=== PATIENT | female | born 1935 | race Caucasian/White ===

== ENCOUNTER 2016-07-15 21:32 | Emergency (ER) | payer MEDICARE ==
[~2016-07-15] VITALS: Ht 157.4 cm; Wt 45.8 kg
[~2016-07-15 21:32] MED LIST: ALENDRONATE SOD35 M1 PO; ASPIRIN81 M1 PO; B12100 MC1 PO; CALCIUM 600600 M2 PO; CARBIDOPA PO; CILOXAN 5 ML5 M1 OT; ESTRAC1 T; LEVOD PO; LIPITOR10 MG PO; MIRALAX17 GM PO; SEROQUEL25 MG PO; STOOL SOFTENER100 MG PO; VITAMIN D32000 UNI1 PO; ZESTRIL10 MG PO
[2016-07-15] MEDS ORDERED: CELECOXIB200 M1 PO (21:44)
[2016-07-15] MEDS ORDERED: FAMOTIDINE20 M1 PO (21:46)
[2016-07-15] MEDS ORDERED: FLORASTOR250 MG PO (21:46)
[2016-07-15] MEDS ORDERED: INVANZ1 GM/50 ML IV (21:47)
[2016-07-15 21:57] LABS: BASO # 0.1 10*3/uL (0.0-0.1); BASO % 0.7 % (0.0-1.0); EOS # 0.5 10*3/uL (0.0-0.4); EOS % 4.5 % (1.0-4.0); HEMATOCRIT 38.9 % (37.0-47.0); HEMOGLOBIN 12.4 g/dl (12.0-16.0); IG # 0.1 10*3/uL (0.0-0.1); LYMPH # 1.6 10*3/uL (1.3-4.4); LYMPH % 14.9 % (27.0-41.0); MEAN CELL VOLUME 95.1 fl (81.0-99.0); MEAN CORPUSCULAR HGB 30.3 pg (27.0-31.0); MEAN CORPUSCULAR HGB CONC 31.9 g/dl (33.0-37.0); MEAN PLATELET VOLUME 10.3 fl (9.6-12.3); MONO % 9.7 % (3.0-9.0); NEUT # 7.4 10*3/uL (2.3-7.9); NEUT % 69.2 % (47.0-73.0); PLATELET COUNT AUTOMATED 279 10*3/uL (130-400); RED BLOOD COUNT 4.09 10*6/uL (4.10-5.10); RED CELL DISTRI WIDTH 13.8 % (0-14.5); WHITE BLOOD COUNT 10.7 10*3/uL (4.8-10.8)
[2016-07-15 22:10] LABS: BUN 16 mg/dl (7-24); CARBON DIOXIDE 24 mmol/L (21-32); CHLORIDE 113 mmol/L (98-107); EST GLOM FILT AFRICAN AMERICAN > 60 ml/min; GLUCOSE 99 mg/dL (65-99); POTASSIUM 3.6 mmol/L (3.5-5.1); SODIUM 147 mmol/L (136-145)
[2016-07-15 22:42] LABS: BILIRUBIN NEGATIVE (NEGATIVE); BLOOD NEGATIVE (NEGATIVE); CLARITY CLEAR (CLEAR); COLOR YELLOW (YELLOW); GLUCOSE NEGATIVE (NEGATIVE); KETONE NEGATIVE (NEGATIVE); LEUKO ESTERASE NEGATIVE (NEGATIVE); NITRITE NEGATIVE (NEGATIVE); PH 6.5 (5.0-9.0); PROTEIN NEGATIVE (NEGATIVE)
[2016-07-15 22:49] LABS: BACTERIA TRACE; WBC 0-2 wbc/hpf (0-5)
[2016-07-15 22:50] LABS: URINE REFLEX COMMENT NO (NO)
[2016-07-24] MEDS ORDERED: TYLENOL650 MG PO (07:51)
[2016-07-24] MEDS ORDERED: ALBUTEROL2.5 MG/0.5 INH (07:52)
[2016-07-24] MEDS ORDERED: PHENOL PO (07:59)
[2016-07-24] MEDS ORDERED: CEPASTAT14.5 MG MM (12:34)
[2016-07-24] MEDS ORDERED: ACETAMINOPHEN325 M2 PO (14:37)
[2016-07-24] MEDS ORDERED: TUMS ULTRA400 MG PO (14:39)
[2016-07-24] MEDS ORDERED: CALCIUM CARB500 MG PO (14:42)
[2016-07-26] MEDS ORDERED: EXELON4.6 MG/24 T (09:15)
== END 2016-07-16 00:11 | disposition home or self-care (01) ==
LOC: ED 21:32
PROVIDERS: Emergency Medicine Emergency Medical Services
DX: M25.551 Pain in right hip (principal); Z96.641 Presence of right artificial hip joint; Z79.899 Other long term (current) drug therapy; Z79.82 Long term (current) use of aspirin

== ENCOUNTER 2016-07-26 12:08 | Inpatient (IN) | payer MEDICARE ==
[~2016-07-26] VITALS: Ht 157.4 cm; Wt 44.9 kg
--- NOTE | ~2016-07-26 | PR ---
[place], [place] PROGRESS NOTE NAME: GIUSEPPE FRANK UNIT #: [id number] ROOM: 311 DOCTOR: JUAN MANUEL DORSEY MD BIRTHDATE: [birth year] DOS: 07/27/2016 The patient is known to me from [facility] and she was admitted to the hospital here after a fall at the prison. The patient was brought in because of confusion. She is pleasantly confused, is not voicing any complaints. PAST MEDICAL HISTORY: Significant for; 1. Multiple ER visits for falls. 2. Frailty with history of recent femoral neck fracture status post open reduction and internal fixation. 3. Parkinson's disease. MEDICATIONS: She is on are Sinemet, aspirin, atorvastatin, calcium, Colace, Pepcid, MiraLax and Rivastigmine she is a nonsmoker. She was living at home until May when she started having hallucinations. PHYSICAL EXAM: GENERAL: She is awake and alert but not oriented to time, place or person pressure is 116/46, pulse is 69, respirations 17, temperature 97.7. LUNGS: Diminished breath sounds. No wheezes, rales or rhonchi heard. HEART: Regular. ABDOMEN: Obese, soft. EXTREMITIES: Without any edema. ASSESSMENT AND PLAN: An 80-year-old with; 1. 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 2. Parkinson's on medications. The patient is here for [facility] for and arrangements will be made for discharge once she is more stable. JUAN MANUEL DORSEY MD CM:PNTRANS [id number] JUAN MANUEL DORSEY MD 09/20/16 1110 [facility].BED
--- NOTE | ~2016-07-26 | DS ---
[place], [place] DISCHARGE SUMMARY [id number] UN[facility] #: [id number] ROOM: 311 DOCTOR: ESDRAS BLACK BIRTHDATE: [birth year] DOS: 08/01/2016 CHIEF COMPLAINT: "Oh, I do not know what I am doing here." HISTORY OF PRESENT ILLNESS: This is an 80-year-old white female who is a resident of [facility]. The patient was initially admitted to the medical floor due to an altered mental status. The patient apparently suffers from Parkinson's disease for sometime and in the fall of 2015 began experiencing significant visual hallucinations at this point in time, her physician placed her on Seroquel. Subsequently, this resulted in frequent falls and she eventually moved in with her daughter who continued to monitor her medical condition. While at the daughter's home, the patient did sustain another fall at this point in time breaking her hip resulting in her having to go to [facility] following the surgery while at [facility], the patient has had a significant mental status change and is becoming increasingly combative, resistive to care and very irritable and hostile. Because of this increasing confusion and significant behavioral changes, the patient was admitted to the medical floor where she was stabilized, continued to have behavioral issues, so she was sent to the [facility] to rule out further organic factors and to attempt to stabilize on medication. PAST MEDICAL HISTORY: Remarkable for Parkinson's disease, osteoporosis and the recent hip fracture. SUMMARY OF HOSPITAL COURSE: The patient was admitted to the unit where she was continued on Exelon patch 4.6 mg a day, which was very rapidly increased to 9.5 mg a day and subsequently to 13.3 mg a day. This was later augmented with Namenda 5 mg a day and then stabilized at 5 mg twice daily. Given her sensitivity to antipsychotics, we attempted to utilize just the cholinesterase inhibitor and the glutamate antagonist. With these medications alone, she seemed to improve. There was no need for Depakote. There was no need for any antipsychotic. She was pleasant and bright through most of her stay, although confused. She was able to engage readily in conversation and was able to engage in individual and fleming milieu activities as well. She exhibited no side effects from either medication. Sleep and appetite were normal and she had improved sufficiently to return back to a long-term care facility. The daughter did not want to send her back to [facility], but instead decided to send her to the [facility] for further treatment where I will follow her there. MENTAL STATUS EXAM: On mental status this morning of discharge, the patient is alert and oriented to self only. She was bright and pleasant and smiled readily. Her responses tended to be very short and simple and at times inappropriate. There were no symptoms of agitation or aggression. There was no hypomania or joseph. There were no overt auditory or visual hallucinations. No delusions or paranoia were voiced. Short-term memory was exceedingly poor, otherwise she was relatively intact. FINAL DIAGNOSES: Brief psychotic disorder and Alzheimer dementia. [place], [place] DISCHARGE SUMMARY NAME: GIUSEPPE FRANK UNIT #: [id number] ROOM: [facility] DOCTOR: ESDRAS BLACK BIRTHDATE: [birth year] PLAN: The patient will be admitted to [facility]. All of her prescriptions have been printed and will be sent with her. I will follow her upon her admission there. ADDENDUM 08/02/16 by Jackson Black Discharge addendum to the patient's discharge summary for yesterday. The patient was not discharged yesterday due to paperwork issue and transportation issues. She will be discharged today to [facility]. There have been no medication changes. The psych that we are discharging her on include Exelon 13.3 mg q. day, Namenda 5 mg b.i.d. with the goal to get it titrated up to 10 mg b.i.d. the maximum dose and vitamin D 50,000 international units q. week. She is being discharged in stable condition. JACKSON BLACK CNP DONOVAN QUAN MD CM:DISCHARG [id number] ESDRAS BLACK 08/03/16 1444 interface
--- NOTE | ~2016-07-26 | PR ---
[place], [place] PROGRESS NOTE NAME: GIUSEPPE FRANK UNIT #: [id number] ROOM: 311 DOCTOR: JUAN MANUEL DORSEY MD BIRTHDATE: [birth year] DOS: SUBJECTIVE: The patient is above the same, pleasantly confused. OBJECTIVE: VITAL SIGNS: Graphic trends shows a pressure 138/78, pulse 75, respirations 20, temperature 97.8. LUNGS: Clear. HEART: Regular. ABDOMEN: Soft, nontender. EXTREMITIES: Without any edema. ASSESSMENT AND PLAN: 1. 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 The patient's medications have been adjusted. 2. Encephalopathy from dementia. She seems to be much calm right now. 3. Nausea, possibly from the high dose of aspirin. We will make it enteric-coated 81 mg aspirin and also add Zofran. She is now on multiple new medicines, which also could be causing some of her nausea, but she is stable and can be discharged back to the half-way today. Follow up as an outpatient. JUAN MANUEL DORSEY MD CM:PNTRANS [id number] JUAN MANUEL DORSEY MD 08/03/16 0457 interface
--- NOTE | ~2016-07-26 | PR ---
[place], [place] PROGRESS NOTE NAME: GIUSEPPE FRANK UNIT #: [id number] ROOM: 311 DOCTOR: ESDRAS BLACK BIRTHDATE: [birth year] DOS: 07/30/2016 CHIEF COMPLAINT: "Good morning." SUMMARY OF VISIT: This patient was interviewed in the dining room where she was finishing breakfast, still hard of hearing, very sweet, very pleasant, compliant with medications, smiles, engages in conversation. No behaviors or issues per nursing. MENTAL STATUS: She is alert and oriented to person and I think place, not time. Mood euthymic. Affect is appropriate. There are no voiced complaint. Memory can be poor at times. PLAN: We will go ahead and max out her Exelon patch to 13.3 mg every day. I will increase that this morning. Plan is to increase the Namenda next to the maximum dose of 10 mg b.i.d. We will continue to try to engage in individual and fleming milieu therapy with the plan to get her back to her long-term nursing facility once psychologically stable as soon as the beginning of the week. DASHA BLACK CNP CM:GENNA 0810 ESDRAS BLACK 07/30/16 2323 interface
--- NOTE | ~2016-07-26 | WRIGHTHP ---
[place], [place] PATIENT HISTORY AND PHYSICAL EXAM [id number] UNIT #: [id number] ROOM: 311 DOCTOR: DONOVAN QUAN MD BIRTHDATE: [birth year] DOS: 07/27/2016 CHIEF COMPLAINT: "Oh I don't know what I'm doing here." HISTORY OF PRESENT ILLNESS: This is an 80-year-old white female who is a resident of [facility]. The patient was initially admitted to the medical floor due to altered mental status. The patient apparently has suffered from Parkinson's disease for some time and in the fall of 2015 began experiencing significant visual hallucinations. At this point in time, her physician placed her on Seroquel. Subsequently this resulted in frequent falls. She eventually moved in with her daughter who continued to monitor her medical condition. While at the daughter's home, the patient did sustain a fall, breaking her hip resulting in her having to go to [facility] for further rehabilitation. While at [place], she had a significant mental status change and became increasingly combative, resistant to care and very irritable and hostile. She is also having increasing confusion. She is ultimately now admitted to the [facility] to rule out organic factors and to attempt to stabilize on medication. PAST MEDICAL HISTORY: Remarkable for Parkinson's disease, osteoporosis and the hip fracture. MENTAL STATUS: The patient is alert and oriented to self, possibly the place, but not time. Mood does seem to be somewhat labile and affect at times is inappropriate. She has significant processing difficulties and it is very difficult for her to string together a reasonable sentence. She lacks spontaneity along these lines as well. Short-term memory is exceedingly poor. DIAGNOSIS: Brief psychotic disorder. PLAN: She has already been started on Exelon patch 4.6 mg a day, which I will go ahead and increase to 9.5 mg a day. I will augment this with Namenda 5 mg a day. My hope is to be able to avoid any type of antipsychotic, may need ultimately start her on Depakote to decrease any mood lability, but I will continue to support and monitor. We will look to place back in to [facility] or an alternative placement facility once she is psychiatrically stable. [place], [place] PATIENT HISTORY AND PHYSICAL EXAM NAME: GIUSEPPE FRANK UNIT #: [id number] ROOM: [facility] DOCTOR: DONOVAN QUAN MD BIRTHDATE: [birth year] DONOVAN QUAN MD CM:HISPHYS:PATIENT HISTORY AND PHYSICAL EXAMINATION 0825 [id number] DONOVAN QUAN MD 07/27/16 1000 interface
--- NOTE | ~2016-07-26 | PR ---
[place], [place] PROGRESS NOTE NAME: GIUSEPPE FRANK UNIT #: [id number] ROOM: 311 DOCTOR: DONOVAN QUAN MD BIRTHDATE: [birth year] DOS: 07/28/2016 INTERVAL NOTE CHIEF COMPLAINT: "Good morning, this is a huge breakfast." SUMMARY OF THE VISIT: The patient was interviewed in the dining area where she sat in a Shantel chair eating her breakfast. She smiled as I approached. She voiced no complaints, reporting that she slept well and that breakfast looked good. She is still very hard of hearing, so at times communication with her is rather difficult. There is no agitation or mood lability noted nor was there any type of medication side effects noted. MENTAL STATUS: She is alert and oriented to self, possibly place in that she knows she is in the hospital, but not necessarily where and her time frame is very poor. Mood is fairly euthymic. Affect appropriate. She voiced no other complaints, although she tended to minimize issues. Short-term memory was exceedingly poor, otherwise she is intact. PLAN: I will maintain Exelon patch at 9.5 mg a day, but increase Namenda from 5 mg daily to 5 mg b.i.d. with a target dose of 10 mg b.i.d. in mind. We will adjust both of these medications gradually over the weekend and into the early part of next week. We will monitor and support with the ultimate plan to return to [facility] when psychiatrically stable. DONOVAN QUAN MD CM:PNTRANS [phone] DONOVAN QUAN MD 09/05/16 1407 interface
--- NOTE | ~2016-07-26 | PR ---
[place], [place] PROGRESS NOTE NAME: GIUSEPPE FRANK UNIT #: [id number] ROOM: 311 DOCTOR: ESDRAS BLACK BIRTHDATE: [birth year] DOS: 07/29/2016 CHIEF COMPLAINT: "Good morning." SUMMARY OF VISIT: The patient was interviewed in the dining room where she was eating breakfast and drinking coffee, very hard of hearing, wears 2 hearing aids. She was pleasant. No voiced complaints from nursing other than the patient needs to have a bowel movement. MENTAL STATUS: Alert and oriented to self, I think place, not time. Mood is euthymic. Affect is appropriate. No voiced complaints from her either, poor memory. PLAN: She is currently on Exelon 9.[address] Pepper increased her Namenda to 5 mg b.i.d. yesterday with a target dose of 10 mg b.i.d. Continue with this medication as is today and then we will increase either the Exelon or Namenda tomorrow. Long-term plan [facility] once stable. DASHA BLACK CNP CM:GENNA [id number] ESDRAS BLACK 07/30/16 0007 interface
--- NOTE | ~2016-07-26 | PR ---
[place], [place] PROGRESS NOTE NAME: GISUEPPE FRANK UNIT #: [id number] ROOM: 311 DOCTOR: DONOVAN QUAN MD BIRTHDATE: [birth year] DOS: 07/31/2016 INTERVAL NOTE CHIEF COMPLAINT: "I don't feel good." SUMMARY OF THE VISIT: The patient was interviewed in the dining area, where she was reclined in a Shantel chair. She looked rather peaked and pale. She complained that she was nauseated and her belly hurt. Otherwise, she has been pleasant and cooperative. She did not want to have breakfast because she was feeling so ill. When asked if she wanted something for the nausea, she nodded in approval. MENTAL STATUS: She is alert and oriented to self, possibly place, but not time. Mood does seem to be trending towards euthymia. Affect is more appropriate. There is no joseph or hypomania. There are no auditory or visual hallucinations, delusions or paranoia. Short-term memory is poor. PLAN: I will maintain Exelon patch at 13.3. I will slow the titration of the Namenda down at this point until we figure out what is happening to her physically. I will write her first some promethazine 12.5 mg IM now and then q. 4 hours p.r.n. for nausea. We will monitor and support. DONOVAN QUAN MD CM:PNTRANS 1 35 DONOVAN QUAN MD 07/31/162034 interface
--- NOTE | ~2016-07-26 | CON ---
[place], [place] REPORT OF CONSULTATION NAME: GIUSEPPE FRANK UNIT #: [id number] ROOM: 311 DOCTOR: JUAN MANUEL DORSEY MD BIRTHDATE: [birth year] DOS: 07/27/2016 The patient is known to me from [facility] and she was admitted to the hospital here after a fall [facility] the [facility]. The patient was brought in because of confusion. She is pleasantly confused, is not voicing any complaints. PAST MEDICAL HISTORY: Significant for; 1. Multiple ER visits for falls. 2. Frailty with history of recent femoral neck fracture status post open reduction and internal fixation. 3. Parkinson's disease. MEDICATIONS: She is on are Sinemet, aspirin, atorvastatin, calcium, Colace, Pepcid, MiraLax and Rivastigmine she is a nonsmoker. She was living at home until May when she started having hallucinations. PHYSICAL EXAM: GENERAL: She is awake and alert but not oriented to time, place or person pressure is 116/46, pulse is 69, respirations 17, temperature 97.7. LUNGS: Diminished breath sounds. No wheezes, rales or rhonchi heard. HEART: Regular. ABDOMEN: Obese, soft. EXTREMITIES: Without any edema. ASSESSMENT AND PLAN: An 80-year-old with; 1. 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 2. Parkinson's on medications. The patient is here for [facility] for and arrangements will be made for discharge once she is more stable. JUAN MANUEL DORSEY MD CM:CONSTR:REPORT OF CONSULTATION 0840 09/20/16 1110 interface
[~2016-07-26 12:08] MED LIST changes: +ACETAMINOPHEN325 M2 PO; +ALBUTEROL2.5 MG/0.5 INH; +CALCIUM CARB500 MG PO; +CELECOXIB200 M1 PO; +CEPASTAT14.5 MG MM; +EXELON4.6 MG/24 T; +FAMOTIDINE20 M1 PO; +FLORASTOR250 MG PO; +INVANZ1 GM/50 ML IV; +PHENOL PO; +TUMS ULTRA400 MG PO; +TYLENOL650 MG PO
[2016-07-26 12:36] VITALS: BP 143/71
[2016-07-26 20:00] VITALS: BP 142/78
[2016-07-27 08:25] VITALS: BP 116/46
[2016-07-27 20:00] VITALS: BP 112/64
[2016-07-28 08:14] VITALS: BP 102/58
[2016-07-28 20:00] VITALS: BP 167/75
[2016-07-29 07:45] VITALS: BP 123/56
[2016-07-29 19:50] VITALS: BP 122/48
[2016-07-30 07:54] VITALS: BP 144/58
[2016-07-30 20:07] VITALS: BP 144/64
[2016-07-31 08:00] VITALS: BP 158/67
[2016-07-31 19:37] VITALS: BP 128/66
[2016-08-01] MEDS ORDERED: EXELON13.3 MG/21 T (07:45)
[2016-08-01] MEDS ORDERED: NAMENDA-5 PO (07:45)
[2016-08-01 11:00] VITALS: BP 143/54
[2016-08-01 19:42] VITALS: BP 137/60
[2016-08-02 07:58] VITALS: BP 138/78
[2016-08-02] MEDS ORDERED: ZOFRAN8 M1 PO (09:00)
[2016-08-02] MEDS ORDERED: ASPIRIN ADULT L81 M1 PO (09:00)
== END 2016-08-02 13:00 | disposition other institution (70) | DRG 56 ==
LOC: 3N 12:08
PROVIDERS: Psychiatry & Neurology Psychiatry
DX: G30.9 Alzheimer's disease, unspecified (principal); G93.40 Encephalopathy, unspecified; G20 Parkinson's disease; F02.81 Dementia in other diseases classified elsewhere, unspecified severity, with behavioral disturbance; F23 Brief psychotic disorder; M81.0 Age-related osteoporosis without current pathological fracture

== ENCOUNTER 2017-06-12 22:58 | Emergency (ER) | payer MEDICARE ==
[~2017-06-12] VITALS: Ht 152.4 cm; Wt 47.6 kg
[~2017-06-12 22:58] MED LIST changes: +ASPIRIN ADULT L81 M1 PO; +EXELON13.3 MG/21 T; +NAMENDA-5 PO; +ZOFRAN8 M1 PO
[2017-06-12] MEDS ORDERED: AFLURIA IM (23:31)
[2017-06-12] MEDS ORDERED: ONDANSETRON8 MG PO (23:31)
[2017-06-12] MEDS ORDERED: SEROQUEL50 MG PO (23:32)
[2017-06-12] MEDS ORDERED: CIMETIDINE400 M1 PO (23:32)
[2017-06-12] MEDS ORDERED: NAMENDA10 MG PO (23:32)
[2017-06-12] MEDS ORDERED: REMERON15 M2 PO (23:33)
[2017-06-12] MEDS ORDERED: RIVASTIGMINE TAR6 M1 PO (23:33)
[2017-06-12] MEDS ORDERED: GLYCOLAX119 GM PO (23:35)
[2017-06-12] MEDS ORDERED: VITAMIN D31000 UNI1 PO (23:35)
[2017-06-12] MEDS ORDERED: ALENDRONATE SOD70 M1 PO (23:35)
[2017-06-12] MEDS ORDERED: LIPITOR10 MG PO (23:36)
[2017-06-12] MEDS ORDERED: DOCUSATE SODIU100 M2 PO (23:36)
[2017-06-12] MEDS ORDERED: ASPIRIN CHEWABL81 MG PO (23:36)
[2017-06-12] MEDS ORDERED: TRAMADOL HCL50 MG PO (23:37)
[2017-06-12] MEDS ORDERED: CARBIDOPA-LEVO1 EAC6 PO (23:37)
[2017-06-12 23:39] LABS: BASO # 0.1 10*3/uL (0.0-0.1); BASO % 0.7 % (0.0-1.0); EOS # 0.5 10*3/uL (0.0-0.4); EOS % 5.1 % (1.0-4.0); HEMATOCRIT 42.9 % (37.0-47.0); HEMOGLOBIN 13.5 g/dl (12.0-16.0); LYMPH # 1.9 10*3/uL (1.3-4.4); LYMPH % 20.9 % (27.0-41.0); MEAN CORPUSCULAR HGB 30.2 pg (27.0-31.0); MEAN CORPUSCULAR HGB CONC 31.5 g/dl (33.0-37.0); MEAN PLATELET VOLUME 9.9 fl (9.6-12.3); MONO # 0.7 10*3/uL (0.1-1.0); MONO % 7.8 % (3.0-9.0); NEUT # 5.9 10*3/uL (2.3-7.9); NEUT % 65.2 % (47.0-73.0); PLATELET COUNT AUTOMATED 301 10*3/uL (130-400); RED BLOOD COUNT 4.47 10*6/uL (4.10-5.10); RED CELL DISTRI WIDTH 14.4 % (0-14.5); WHITE BLOOD COUNT 9.1 10*3/uL (4.8-10.8)
[2017-06-12 23:50] LABS: ACT PARTIAL THROMBO TIME 23.9 SECONDS (20.8-31.5)
[2017-06-13 00:05] LABS: ALBUMIN 3.5 gm/dl (3.1-4.5); ALKALINE PHOSPHATASE 122 U/L (45-117); BUN 23 mg/dl (7-24); CHLORIDE 106 mmol/L (98-107); CREATININE 0.69 mg/dL (0.55-1.02); POTASSIUM 4.1 mmol/L (3.5-5.1); SGOT/AST 23 IU/L (3-35); SGPT/ALT 7 U/L (12-78); SODIUM 143 mmol/L (136-145); TOTAL PROTEIN 7.2 gm/dL (6.4-8.2)
[2017-06-13 00:08] LABS: TROPONIN I < 0.015 ng/ml (<0.045)
[2017-06-13 00:56] LABS: BILIRUBIN NEGATIVE (NEGATIVE); BLOOD 3+ (NEGATIVE); CLARITY SL CLOUDY (CLEAR); COLOR YELLOW (YELLOW); GLUCOSE NEGATIVE (NEGATIVE); KETONE NEGATIVE (NEGATIVE); LEUKO ESTERASE 3+ (NEGATIVE); NITRITE POSITIVE (NEGATIVE); PH 7.5 (5.0-9.0); UROBILINOGEN 0.2 E.U./dl (0.2-1.0)
[2017-06-13 01:02] LABS: BACTERIA 1+
[2017-06-13 01:03] LABS: RBC 16-20 rbc/hpf (0-2); WBC TNTC wbc/hpf (0-5)
== END 2017-06-13 05:58 | disposition short-term general hospital (02) ==
LOC: ED 22:58
PROVIDERS: Student in an Organized Health Care Education/Training Program
DX: R47.01 Aphasia (principal); E86.0 Dehydration; G93.41 Metabolic encephalopathy; Z79.899 Other long term (current) drug therapy; Z79.82 Long term (current) use of aspirin; Z91.81 History of falling